=== PATIENT | female | born 1945 | race Caucasian/White ===

== ENCOUNTER → 2016-12-25 | Outpatient (CLI) | payer MEDICARE ==
[~2016-12-25] MED LIST: AGGRENOX PO; ASCORBIC ACID500 M3 PO; IMDUR-ER30 M3 PO; KEPPRA500 M2 PO; LEVOTHYROXINE150 MCG PO; LIPITOR40 MG PO; LORTAB 5-325 M1 EACH PO; METFORMIN HCL1000 M2 PO; METOPROLOL TAR25 MG PO; RANEXA500 MG PO
--- NOTE | ~2016-12-25 | MR113 ---
[facility] A Service of [facility] & [facility] RADIOLOGY TEXT RESULTS PATIENT: ALISIA MENEZES LOCATION: [facility] : 49 UNIT #: [id number] AGE: [address]: Alfonso Carpenter MD SEX: F ORDER DR: [id number] [facility] [address] [place], [place] [address] [id number] O MR#: [id number] #: [id number] NAME: ALISIA MENEZES : 1945 SEX: F STUDY DATE/TIME: 12/25/2016 8:47 UNIT: [facility] ROOM: STUDY DESCRIPTION: MR Lumbar Wo Contrast Attending Physician: Alfonso Carpenter M.D. Ordering Physician: Alfonso Carpenter M.D. Primary Care Physician: Rehana Beatty A.P.R.N. MRI CENTER REPORT This report is preliminary unless electronic signature is present. EXAM Lumbar MRI without. HISTORY Fracture. Fallen several times in the past six months. Most recent fall was 2 days ago. Now has constant low-back pain, bilateral hip and groin pain. No history of cancer. COMPARISON STUDIES Lumbar spine CT for comparison from 09/21/2016. FINDINGS In the interval since that study, there has been progression of the known fracture centered at the superior endplate of L3. This fracture is most prominent centrally and results in about 38% loss of mid vertebral body height. There is mild posterior cortical buckling and more moderate anterior cortical buckling, such that overall there is mild anterior wedging. These findings are all progressed from the prior CT scan and there is no edema involving the majority of the L3 vertebral body, consistent with recent progression of the compression fracture. There is also edema involving the superior endplate of L4. There is severe degenerative disc disease at this level and there is at least a component of marrow endplate degenerative change and endplate spondylosis. It is not clear how much of this edema is due to the marrow endplate degenerative change, rather than some superimposed subtle recent fracture involving the superior endplate of L4. Marrow signal intensity is otherwise within the range of normal allowing for some marrow endplate degenerative change. Disc desiccation is present lower lumbar vertebral bodies with mild loss of intervertebral disc height at L5-S1. The conus medullaris terminates at L1-2 and is normal. On the coronal imaging, there is levoconvex lumbar scoliosis about 12 degrees centered at L3. At the level of the L3 fracture at the posterior superior endplate is STS. [facility] A Service of [facility] RADIOLOGY TEXT RESULTS PATIENT: ALISIA MENEZES LOCATION: [facility] : 47 UNIT #: [id number] AGE: [address]: Alfonso Carpenter MD SEX: F ORDER DR: displaced into the canal about 4 mm and contributes to mild to moderate canal stenosis at this level. At L1-2, there is mild right and ztto-wr-kjmzfjfw left-side facet degenerative change with mild concentric disc bulge more prominent to the left side laterally. There is no central canal stenosis. There is mild left inferior foraminal narrowing. At L2-3, there is moderate bilateral facet degenerative change and moderate ligamentum flavum thickening. In addition to the compression fracture, there is concentric disc bulge at the 2-3 level with more focal protrusion to the left side posterolaterally. At the level of the disc, there is approximately moderate canal stenosis. There is mild bilateral foraminal narrowing. Just below the disc material is the retropulsed cortex and above-noted zgvl-lo-qdsgxsun canal compromise. At L3-4, there is moderate facet degenerative change and ligamentum flavum thickening. There is concentric desiccated disc osteophyte complex with moderate to severe central canal stenosis. Disc osteophyte extends into the foramina and there is mild left and right-sided foraminal narrowing. At L4-5, moderate facet degenerative change bilaterally, moderate ligamentum flavum thickening, broad-based posterior disc bulge. The combination of findings result in moderate canal stenosis. Mild mass effect on the right lateral recess. Disc material extends into the foramina. There is minimal left and bcgn-dk-bfkvnrrs right-side foraminal narrowing. Disc material abuts the expected location of the right L4 root in the foramen. At L5-S1, mild left-sided foraminal narrowing. The patient has had a remote left-side laminectomy. Mild facet degenerative change. No recurrent or residual canal stenosis suspected. 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 IMPRESSION 1. There is a recent appearing compression fracture centered at the superior endplate of L3 resulting in about 38% loss of vertebral body height. This is progressed from a CT scan from 09/21/2016 suggesting overall progression of the compression fracture, possibly with a new fracture superimposed upon the previously noted fracture. There is now buckling of the posterior-superior cortex of L3, such that it is retropulsed about 4 mm into the canal. At the level of the retropulsed cortex, there is cwzf-rh-aerntoww canal stenosis. There is, however, also multilevel canal stenosis related to degenerative disease and at the level of the 2-3 disc itself, this is more moderate. At the level of the 3-4 intervertebral disc it is more moderate to severe. Please refer to the zjzcr-tv-jcaby description of findings. 2. There is a smaller amount of marrow edema superior endplate of L4, STS. [facility] A Service of [facility] RADIOLOGY TEXT RESULTS PATIENT: ALISIA MENEZES LOCATION: [facility] : 47 UNIT #: [id number] AGE: [address]: Alfonso Carpenter MD SEX: F ORDER DR: which might be due to recent mild compression fracture versus marrow endplate degenerative change. Overall, I would favor that this is marrow endplate degenerative change. 3. Mild levoconvex lumbar scoliosis. Dictated by... Ariella Payne M.D. THIS IS AN ELECTRONICALLY VERIFIED REPORT Ariella Payne M.D. at 12/25/2016 1:23 PM KIMBERLY/melissa TD: 12/25/2016 12:25 JOB #: [id number] MRI CENTER REPORT Page 1 of 1 COPY
== END | disposition home or self-care (01) ==
LOC: CMRI 08:20
DX: M48.56XA Collapsed vertebra, not elsewhere classified, lumbar region, initial encounter for fracture (principal); M51.36 Other intervertebral disc degeneration, lumbar region; M48.06 Spinal stenosis, lumbar region; M41.9 Scoliosis, unspecified; R60.9 Edema, unspecified; M25.559 Pain in unspecified hip; R10.30 Lower abdominal pain, unspecified
CPT/HCPCS: 72148